=== PATIENT | male | born 1995 | race Two or more races ===

== ENCOUNTER 2019-12-04 20:27 | Emergency (ER) | payer MEDICAID, OTHER ==
[2019-12-04] MEDS ORDERED: FENTANYL CITRATE INJ/PF 100 MCG/2 ML AMPUL IV ONE (20:57)
[2019-12-04] MEDS ORDERED: PROMETHAZINE HCL INJ 25 MG/1 ML VIAL IV ONE (20:58)
[2019-12-04] MEDS ORDERED: CEFTRIAXONE INJ 1000 MG VIAL IV ONE (20:58)
[2019-12-04] MEDS ORDERED: IBUPROFEN 600 MG TABLET PO ONE (20:59)
[2019-12-04] MEDS ORDERED: DIPH/PERTUSS(ACELL)/TETANUS VAC/PF 0.5 ML SYR (>=10YO) IM ONE (20:59)
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
[2019-12-04] MEDS: NORMAL SALINE 1000 ML 1,000 ML IV PRN ×2 (21:22→22:33)
[2019-12-04] MEDS ORDERED: HYDROMORPHONE HCL INJ/PF 2 MG/ML AMPULE IV ONE ×2 (21:47→23:48)
[2019-12-04] MEDS ORDERED: ONDANSETRON ODT 4 MG TAB (6 TAB/ER DISP) PO PRN (22:19)
[2019-12-04] MEDS ORDERED: HYDROCODONE/ACETAMINOPHEN 5-325 MG (6 TAB/ER DISP) PO PRN (22:19)
[2019-12-04 23:14] LABS: ABSOLUTE MONOCYTES (AUTO) 0.8 10^3/uL (0.1-1.4); ABSOLUTE NEUT (AUTO) 12.4 10^3/uL (1.7-8.2); BASOPHILS % (AUTO) 0.3 % (0-2); EOSINOPHILS % (AUTO) 0.2 % (0-6); HEMATOCRIT 44.2 % (37.9-51.0); HEMOGLOBIN 15.2 g/dL (13.5-17.0); LYMPHOCYTES % (AUTO) 7.3 % (13-45); MEAN CORPUSCULAR HEMOGLOBIN 31.3 pg (27.0-33.4); MEAN CORPUSCULAR HGB CONC 34.4 g/dL (32.0-36.0); MEAN CORPUSCULAR VOLUME 91 fl (80-97); MONOCYTES % (AUTO) 5.5 % (3-13); PLATELET COUNT 245 10^3/uL (150-450); RED BLOOD COUNT 4.86 10^6/uL (4.35-5.55); RED CELL DISTRIBUTION WIDTH 12.7 % (11.5-14.0); SEGMENTED NEUTROPHILS % (AUTO) 86.7 % (42-78); TOTAL CELLS COUNTED % (AUTO) 100 %; WHITE BLOOD COUNT 14.3 10^3/uL (4.0-10.5)
[2019-12-04 23:31] LABS: ANION GAP 8 (5-19); BLOOD UREA NITROGEN 9 mg/dL (7-20); CALCIUM 8.7 mg/dL (8.4-10.2); CARBON DIOXIDE 25 mmol/L (22-30); CHLORIDE 106 mmol/L (98-107); GLUCOSE 92 mg/dL (75-110)
[2019-12-04] MEDS ORDERED: BACITRACIN ZINC OINTMENT 15 GM TP ONE (23:47)
[2019-12-04 23:49] VITALS: BP 165/105
[2019-12-04] MEDS ORDERED: BACITRACIN ZINC OINTMENT 15 GM ONE (23:59)
== END 2019-12-05 00:48 | disposition home or self-care (01) ==
LOC: ER 20:27
DX: T25.221A Burn of second degree of right foot, initial encounter (principal); T25.222A Burn of second degree of left foot, initial encounter; T24.122A Burn of first degree of left knee, initial encounter; T24.132A Burn of first degree of left lower leg, initial encounter; T31.0 Burns involving less than 10% of body surface; X10.2XXA Contact with fats and cooking oils, initial encounter; Y93.89 Activity, other specified; Y92.511 Restaurant or cafe as the place of occurrence of the external cause; Y99.0 Civilian activity done for income or pay; R11.0 Nausea; Z87.891 Personal history of nicotine dependence
CPT/HCPCS: 99283; 96372; 96361; 96375; 96365; 36415; 87040; 85025; 80048; J3490; J3010; J1170 ×2; J2550; J0696; J7030